=== PATIENT | female | born 1980 | race Hispanic/Latino ===

== ENCOUNTER 2018-02-16 06:27 | Inpatient (IN) | payer BC ==
[2018-02-16] MEDS ORDERED: Lactated Ringer's 1,000 ML IV SCH (06:46)
[2018-02-16] MEDS ORDERED: Acetaminophen 500 MG TAB PO PRN (06:46)
[2018-02-16] MEDS ORDERED: Promethazine HCl 25 MG/ML VIAL IM PRN (06:46)
[2018-02-16] MEDS ORDERED: Ondansetron HCl/PF 4 MG/2 ML Vial IVP PRN ×2 (06:46→07:37)
[2018-02-16] MEDS ORDERED: Lidocaine 1% (PF) 30 ML VIAL SC PRN (07:00)
[2018-02-16] MEDS ORDERED: LR / Pitocin 40 units/1000 ml 40 UNITS/1,000 ML BAG IV SCH (07:00)
[2018-02-16] MEDS ORDERED: LR 500 ML/Oxytocin 10 units 500 ML IV SCH ×3 (07:00→09:30)
[2018-02-16] MEDS ORDERED: Ibuprofen 800 MG TAB PO PRN (07:00)
[2018-02-16] MEDS ORDERED: Misoprostol 200 MCG TAB RC PRN ×2 (07:00→08:40)
[2018-02-16] MEDS: Lactated Ringer's 1,000 ML IV SCH ×2 (07:30→21:56)
[2018-02-16 07:36] VITALS: BMI 32.8
[2018-02-16] MEDS ORDERED: Bisacodyl 10 MG SUPP PR PRN (07:37)
[2018-02-16] MEDS ORDERED: Benzocaine/Menthol 20-0.5% 60 ML CAN TOP PRN (07:37)
[2018-02-16] MEDS ORDERED: Acetaminophen/Codeine 30-300mg Tablet PO PRN (07:37)
[2018-02-16] MEDS ORDERED: HYDROcodone/Acetaminophen 5/325 mg Tablet PO PRN (07:37)
[2018-02-16] MEDS ORDERED: diphenhydrAMINE 25 MG CAP PO PRN (07:37)
[2018-02-16] MEDS ORDERED: Preparation H Ointment 28 GM TUBE PR PRN (07:37)
[2018-02-16] MEDS ORDERED: Lanolin Ointment 7 GM TUBE TOP PRN (07:37)
[2018-02-16] MEDS ORDERED: Milk Of Magnesia 30 ML UDCUP PO PRN (07:37)
[2018-02-16] MEDS ORDERED: traMADol HCl 50 MG TAB PO PRN (07:37)
[2018-02-16] MEDS ORDERED: LR 500 ML/Oxytocin 10 units 500 ML ONE (08:16)
[2018-02-16] MEDS ORDERED: DISCONTINUE ALL PREVIOUS NARCOTICS FS SCH (10:15)
[2018-02-16] MEDS ORDERED: Bupivacaine 0.5% 20 ML, Fentanyl 400 MCG in Sodium Chloride 0.9% 72 ML EPIDURAL SCH (10:15)
[2018-02-16] MEDS: Ferrous Sulfate 325 MG TAB PO SCH ×2 (10:29→16:28)
[2018-02-16] MEDS: LR 500 ML/Oxytocin 10 units 500 ML IV SCH ×2 (10:29→12:02)
[2018-02-16] MEDS: Docusate Calcium (SURFAK) 240 MG CAP PO SCH ×2 (10:29→22:03)
[2018-02-16] MEDS: Prenatal Vitamin 1 TAB PO SCH (10:29)
[2018-02-16 10:38] LABS: Mean Corpuscular HGB CONC 33.6 g/dL (32.0-36.0); Mean Corpuscular Hemoglobin 29.1 pg (27.0-31.0); Mean Corpuscular Volume 86.5 fl (81.0-99.0); Mean Platelet Volume 9.3 fL (7.4-10.4); Platelet Count 228 thou/uL (130-400); RBC Distribution Width 13.9 % (11.5-14.5); Red Blood Cell (RBC) Count 3.77 mill/uL (4.20-5.40); White Blood Cell (WBC) Count 6.7 thou/uL (4.8-10.8)
[2018-02-16 11:02] LABS: HBSAg Index 0.17 S/CO (0-0.99); Hep B Surf Ag Non-Reactive S/CO (NonReactive); Syphilis Antibody Nonreactive (Nonreactive); Syphilis Antibody Index 0.06 S/CO (<1.00 Non-Reactive)
[2018-02-16] MEDS: LR / Pitocin 40 units/1000 ml 1,000 ML IV SCH ×2 (11:08→12:19)
[2018-02-16] MEDS: Ibuprofen 800 MG TAB PO SCH ×2 (12:02→22:03)
[2018-02-16] MEDS ORDERED: Ibuprofen 800 MG TAB PO SCH (14:00)
[2018-02-17] MEDS: Lactated Ringer's 1,000 ML IV SCH ×2 (00:28→08:33)
[2018-02-17] MEDS: Ibuprofen 800 MG TAB PO SCH ×3 (06:04→13:41)
[2018-02-17 08:26] VITALS: BP 113/70; TEMP 97.7
[2018-02-17] MEDS: Docusate Calcium (SURFAK) 240 MG CAP PO SCH (08:33)
[2018-02-17] MEDS: Ferrous Sulfate 325 MG TAB PO SCH ×2 (08:33→10:25)
[2018-02-17] MEDS: Prenatal Vitamin 1 TAB PO SCH (08:33)
[2018-02-17] MEDS: LR 500 ML/Oxytocin 10 units 500 ML IV SCH ×2 (08:35→10:24)
== END 2018-02-17 14:20 | disposition home or self-care (01) | DRG 775 ==
LOC: L&D 06:27 → 3SE 14:28 → 3SW 21:43
PROVIDERS: ADMIT Family Medicine; ATTEND Family Medicine
PROC: 10E0XZZ Delivery of Products of Conception, External Approach (ICD-10-PCS; principal; 2018-02-16)
PROC: 3E033VJ Introduction of Other Hormone into Peripheral Vein, Percutaneous Approach (ICD-10-PCS; 2018-02-16)
DX: O80 Encounter for full-term uncomplicated delivery (principal); Z37.0 Single live birth; Z3A.40 40 weeks gestation of pregnancy
CPT/HCPCS: 85027; 86780; 87340; A4216; J3010; J3490; J7050; J7120

== ENCOUNTER 2024-07-06 14:16 | Outpatient (CLI) | payer BC | END 2024-07-06 14:17 | disposition home or self-care (01) | LOC: BICMAMMO 14:16 | DX: N63.20 Unspecified lump in the left breast, unspecified quadrant (principal) | CPT/HCPCS: G0279 ==